=== PATIENT | female | born 1965 | race African-American/Black ===

== ENCOUNTER 2018-11-15 12:00 | Emergency (ER) | payer MEDICAID ==
[~2018-11-15] VITALS: Ht 160 cm; Wt 74.0 kg
[2018-11-15] MEDS ORDERED: INSULIN REGULAR (HUMULIN R) UD 100 UNITS/ML SYR IV ONE (13:00)
[2018-11-15] MEDS ORDERED: SODIUM CHLORIDE 0.9% 1,000 ML IV ONE (13:00)
[2018-11-15 13:12] LABS: BASOPHILS % 0.8 % (0.0-2.0); HEMOGLOBIN. 13.7 g/dL (12.0-16.0); LYMPHOCYTES % 31.2 % (20.0-50.0); MEAN CORPUSCULAR HEMOGLOBIN 29.1 pg (28.0-32.0); MEAN CORPUSCULAR VOLUME 87.2 fL (81.0-99.0); MONOCYTES % 6.1 % (2.0-8.0); NEUTROPHILS % 60.9 % (40.0-76.0); PLATELET 307 x1000/uL (130-400); RED BLOOD CELL COUNT 4.71 mill/uL (4.2-5.4); RED CELL DISTRIBUTION WIDTH 12.7 % (11.6-14.6)
[2018-11-15 13:16] LABS: CHLORIDE 103 mEq/L (98-107)
[2018-11-15 13:20] LABS: ETHANOL BLOOD < 10 mg/dL
[2018-11-15] MEDS ORDERED: HEPARIN 1000 UNITS/ML 10ML ONE (15:52)
[2018-11-15] MEDS ORDERED: LIDOCAINE HCL 1% 20ML VIAL (Pyxis) INJ ONE (15:52)
[2018-11-15] MEDS ORDERED: SODIUM BICARBONATE 4% (2.4MEQ) 5ML VIAL IV ONE (15:52)
[2018-11-15 17:33] VITALS: BP 142/76
== END 2018-11-15 17:35 | disposition home or self-care (01) ==
LOC: ER 12:00
DX: E11.65 Type 2 diabetes mellitus with hyperglycemia (principal); I10 Essential (primary) hypertension
CPT/HCPCS: 36415; 71046; 80048; 80307; 80320; 80329; 82962; 85025; 96361; 96374; 99284; J1815; J7030; J1644; J3490; G0480